=== PATIENT | male | born 1935 | race Caucasian/White ===

== ENCOUNTER 2017-02-24 12:27 | Inpatient (IN) | payer OTHER ==
[~2017-02-24] VITALS: Ht 154.9 cm; Wt 83.9 kg
[2017-02-24] VITALS (7 sets, daily range): BP systolic 127–144; BP diastolic 58–64
[2017-02-24 13:27] LABS: MCH 22.5 PG (29.0-34.0); MCHC 29.2 G/DL (30.0-36.0); MCV 77.2 FL (86-99); MEAN PLAT.VOLUME 11.9 uM^3 (9.0-12.4); PLATELET COUNT 119 K/uL (156-360); RBC DIS.WIDTH-SD 41.4 % (39-53); RED BLOOD COUNT 3.11 M/uL (4.00-5.50); WHITE BLOOD COUNT 4.3 K/uL (4.1-10.2)
[2017-02-24 13:40] LABS: CHLORIDE 107 mEq/L (99-109); POTASSIUM 4.1 mEq/L (3.7-5.4); SODIUM 140 mEq/L (136-147)
[2017-02-24 13:41] LABS: GLUCOSE 139 mg/dL (70-99)
[2017-02-24 13:43] LABS: ANION GAP 14 MEQ/L (2-14)
[2017-02-24 13:45] LABS: GFR ESTIMATE (CALCULATED) 52 mL/min/
[2017-02-24 13:46] LABS: UREA NITROGEN (BUN) 32 mg/dL (9-23)
[2017-02-24] MEDS ORDERED: LEVO-T50 MCG PO (14:46)
[2017-02-24] MEDS ORDERED: LANTUS 3 M100 UNITS1 SC (14:46)
[2017-02-24] MEDS ORDERED: ALTACE10 MG PO (14:47)
[2017-02-24] MEDS ORDERED: HYDROCHLOROTHIA25 MG PO (14:47)
[2017-02-24] MEDS ORDERED: GLUCOPHAGE500 MG PO (14:48)
[2017-02-24] MEDS ORDERED: LIPITOR40 MG PO (14:48)
[2017-02-24] MEDS ORDERED: LOPRESSOR50 MG PO (14:49)
[2017-02-24] MEDS ORDERED: FERROUS SULFAT325 MG PO (14:50)
[2017-02-24] MEDS ORDERED: LO-DOSE ASPIRIN81 M2 PO (14:50)
[2017-02-24 15:47] LABS: POINT-OF-CARE METER ID UU13113702
[2017-02-24 17:39] LABS: FERRITIN 10 NG/ML (22-322)
[2017-02-24 21:11] LABS: POINT-OF-CARE METER ID UU13113725
[2017-02-25] VITALS (11 sets, daily range): BP systolic 112–139; BP diastolic 55–63
[2017-02-25 04:37] LABS: HEMATOCRIT 26.8 % (38.0-50.0); MCH 23.2 PG (29.0-34.0); MCV 75.1 FL (86-99); MEAN PLAT.VOLUME 11.2 uM^3 (9.0-12.4); PLATELET COUNT 120 K/uL (156-360); RBC DIS.WIDTH-CV 14.6 % (11.8-14.6); RBC DIS.WIDTH-SD 39.8 % (39-53); RED BLOOD COUNT 3.57 M/uL (4.00-5.50); WHITE BLOOD COUNT 4.6 K/uL (4.1-10.2)
[2017-02-25 05:36] LABS: POINT-OF-CARE METER ID UU13113725
[2017-02-25 06:17] LABS: BASOPHIL COUNT 0.1 K/uL (0-0.1); EOSINOPHIL (%) 1.8 % (0-5); EOSINOPHIL COUNT 0.1 K/uL (0-0.3); IMMATURE GRANULOCYTE (%) 0.5 % (0.0-0.7); INSTRUMENT ABS NEUTROPHIL CT 2.5 K/uL; LYMPHOCYTE COUNT 1.2 K/uL (1.0-2.8); MCH 22.6 PG (29.0-34.0); MCHC 29.6 G/DL (30.0-36.0); MCV 76.3 FL (86-99); MEAN PLAT.VOLUME 11.8 uM^3 (9.0-12.4); MONOCYTE (%) 11.2 % (3-12); MONOCYTE COUNT 0.5 K/uL (0-0.8); NEUTROPHIL (%) 57.1 % (45-76); NEUTROPHIL COUNT 2.5 K/uL (1.8-6.4); PLATELET COUNT 114 K/uL (156-360); RBC DIS.WIDTH-CV 14.7 % (11.8-14.6); RBC DIS.WIDTH-SD 40.6 % (39-53); RED BLOOD COUNT 3.67 M/uL (4.00-5.50); WHITE BLOOD COUNT 4.4 K/uL (4.1-10.2)
[2017-02-25 06:42] LABS: ANION GAP 11 MEQ/L (2-14); CHLORIDE 102 MEQ/L (99-109); GFR ESTIMATE (CALCULATED) 56 mL/min/; SAMPLE HEMOLYSIS CHECK 0; SAMPLE ICTERIC CHECK 0; SAMPLE LIPEMIA CHECK 0; SODIUM 139 MEQ/L (136-147); UREA NITROGEN (BUN) 32 mg/dL (9-23)
[2017-02-25 06:43] LABS: ALKALINE PHOSPHATASE 64 IU/L (3-129); ANION GAP 12 MEQ/L (2-14); CHLORIDE 101 MEQ/L (99-109); GFR ESTIMATE (CALCULATED) 56 mL/min/; POTASSIUM 4.1 MEQ/L (3.7-5.4); SAMPLE HEMOLYSIS CHECK 0; SAMPLE ICTERIC CHECK 0; SAMPLE LIPEMIA CHECK 0; SODIUM 138 MEQ/L (136-147); UREA NITROGEN (BUN) 32 mg/dL (9-23)
[2017-02-25 06:44] LABS: INTER. NORMALIZED RATIO 1.1; PROTHROMBIN TIME 11.5 (9.2-11.2); PTT 29.2 (25-32)
[2017-02-25 06:52] LABS: GLUCOSE 79 mg/dL (70-99); GLUCOSE 80 mg/dL (70-99); TOTAL BILIRUBIN 0.7 MG/DL (0.0-1.0)
[2017-02-25 10:11] LABS: POINT-OF-CARE METER ID UU13113675
[2017-02-25 11:48] LABS: POINT-OF-CARE METER ID UU13113725
[2017-02-25 14:25] LABS: HEMATOCRIT 27.1 % (38.0-50.0); MCV 77.4 FL (86-99)
[2017-02-25 16:02] LABS: POINT-OF-CARE METER ID UU13113725
[2017-02-25 20:50] LABS: POINT-OF-CARE METER ID UU13113725
[2017-02-26 03:36] VITALS: BP 128/64
[2017-02-26 05:55] LABS: POINT-OF-CARE METER ID UU13113725
[2017-02-26 06:03] LABS: HEMATOCRIT 28.9 % (38.0-50.0); MCH 23.6 PG (29.0-34.0); MCHC 30.8 G/DL (30.0-36.0); MCV 76.7 FL (86-99); PLATELET COUNT 101 K/uL (156-360); RBC DIS.WIDTH-CV 15.2 % (11.8-14.6); RBC DIS.WIDTH-SD 41.6 % (39-53); RED BLOOD COUNT 3.77 M/uL (4.00-5.50); WHITE BLOOD COUNT 4.5 K/uL (4.1-10.2)
[2017-02-26 06:26] LABS: ANION GAP 11 MEQ/L (2-14); CHLORIDE 101 MEQ/L (99-109); GFR ESTIMATE (CALCULATED) > 59 mL/min/; GLUCOSE 74 mg/dL (70-99); POTASSIUM 3.7 MEQ/L (3.7-5.4); SAMPLE HEMOLYSIS CHECK 0; SAMPLE ICTERIC CHECK 0; SAMPLE LIPEMIA CHECK 0; SODIUM 138 MEQ/L (136-147); UREA NITROGEN (BUN) 26 mg/dL (9-23)
[2017-02-26 07:11] VITALS: BP 136/60
[2017-02-26 11:25] VITALS: BP 140/64
[2017-02-26 11:30] LABS: POINT-OF-CARE METER ID UU13113725
[2017-02-26 15:53] VITALS: BP 160/79
[2017-02-26 23:02] VITALS: BP 122/56
[2017-02-27 05:40] LABS: POINT-OF-CARE METER ID UU13113725
[2017-02-27 06:24] LABS: HEMATOCRIT 31.1 % (38.0-50.0); MCH 23.3 PG (29.0-34.0); MCHC 29.9 G/DL (30.0-36.0); MCV 77.9 FL (86-99); MEAN PLAT.VOLUME 11.6 uM^3 (9.0-12.4); PLATELET COUNT 106 K/uL (156-360); RBC DIS.WIDTH-CV 15.4 % (11.8-14.6); RBC DIS.WIDTH-SD 43.3 % (39-53); RED BLOOD COUNT 3.99 M/uL (4.00-5.50); WHITE BLOOD COUNT 4.9 K/uL (4.1-10.2)
[2017-02-27 06:50] LABS: ANION GAP 11 MEQ/L (2-14); CHLORIDE 100 MEQ/L (99-109); GFR ESTIMATE (CALCULATED) > 59 mL/min/; GLUCOSE 75 mg/dL (70-99); POTASSIUM 3.7 MEQ/L (3.7-5.4); SAMPLE HEMOLYSIS CHECK 0; SAMPLE ICTERIC CHECK 0; SAMPLE LIPEMIA CHECK 0; SODIUM 140 MEQ/L (136-147); UREA NITROGEN (BUN) 21 mg/dL (9-23)
[2017-02-27 08:24] VITALS: BP 146/67; BP 146/673
[2017-02-27 11:17] LABS: POINT-OF-CARE METER ID UU13113725
[2017-02-27 14:31] VITALS: BP 121/56
[2017-02-27 17:35] LABS: POINT-OF-CARE METER ID UU13113675
[2017-02-27 18:55] VITALS: BP 119/59
[2017-02-27 19:12] VITALS: BP 134/57
[2017-02-27 20:51] LABS: POINT-OF-CARE METER ID UU13113725
[2017-02-28 06:06] LABS: POINT-OF-CARE METER ID UU13113725
[2017-02-28 06:55] LABS: HEMATOCRIT 30.5 % (38.0-50.0); MCH 23.1 PG (29.0-34.0); MCHC 29.2 G/DL (30.0-36.0); MEAN PLAT.VOLUME 11.4 uM^3 (9.0-12.4); PLATELET COUNT 92 K/uL (156-360); RBC DIS.WIDTH-CV 15.7 % (11.8-14.6); RBC DIS.WIDTH-SD 44.4 % (39-53); RED BLOOD COUNT 3.86 M/uL (4.00-5.50); WHITE BLOOD COUNT 4.9 K/uL (4.1-10.2)
[2017-02-28 07:17] LABS: ANION GAP 9 MEQ/L (2-14); CHLORIDE 103 MEQ/L (99-109); GFR ESTIMATE (CALCULATED) > 59 mL/min/; GLUCOSE 83 mg/dL (70-99); POTASSIUM 3.7 MEQ/L (3.7-5.4); SAMPLE HEMOLYSIS CHECK 0; SAMPLE ICTERIC CHECK 0; SAMPLE LIPEMIA CHECK 0; SODIUM 140 MEQ/L (136-147); UREA NITROGEN (BUN) 18 mg/dL (9-23)
[2017-02-28 08:21] VITALS: BP 122/60
[2017-02-28 16:45] VITALS: BP 115/55
[2017-02-28 20:55] LABS: POINT-OF-CARE METER ID UU13113725
[2017-02-28 23:54] VITALS: BP 134/57
[2017-03-01 06:00] LABS: POINT-OF-CARE METER ID UU13113725
[2017-03-01 06:44] LABS: ANION GAP 8 MEQ/L (2-14); CHLORIDE 101 MEQ/L (99-109); GFR ESTIMATE (CALCULATED) > 59 mL/min/; POTASSIUM 3.6 MEQ/L (3.7-5.4); SAMPLE HEMOLYSIS CHECK 0; SAMPLE ICTERIC CHECK 0; SAMPLE LIPEMIA CHECK 0; SODIUM 136 MEQ/L (136-147); UREA NITROGEN (BUN) 21 mg/dL (9-23)
[2017-03-01 06:51] LABS: BASOPHIL COUNT 0.1 K/uL (0-0.1); EOSINOPHIL (%) 2.4 % (0-5); EOSINOPHIL COUNT 0.1 K/uL (0-0.3); HEMATOCRIT 30.7 % (38.0-50.0); IMMATURE GRANULOCYTE (%) 0.2 % (0.0-0.7); INSTRUMENT ABS NEUTROPHIL CT 2.8 K/uL; LYMPHOCYTE COUNT 1.1 K/uL (1.0-2.8); MCH 22.9 PG (29.0-34.0); MCHC 29.3 G/DL (30.0-36.0); MCV 78.1 FL (86-99); MONOCYTE (%) 10.2 % (3-12); MONOCYTE COUNT 0.5 K/uL (0-0.8); NEUTROPHIL (%) 62.9 % (45-76); NEUTROPHIL COUNT 2.8 K/uL (1.8-6.4); PLATELET COUNT 94 K/uL (156-360); RBC DIS.WIDTH-CV 15.5 % (11.8-14.6); RBC DIS.WIDTH-SD 43.8 % (39-53); RED BLOOD COUNT 3.93 M/uL (4.00-5.50); WHITE BLOOD COUNT 4.5 K/uL (4.1-10.2)
[2017-03-01 06:55] LABS: GLUCOSE 113 mg/dL (70-99)
[2017-03-01 07:30] VITALS: BP 114/60
[2017-03-01 15:34] VITALS: BP 118/55
[2017-03-01 16:43] LABS: POINT-OF-CARE METER ID UU13113725
[2017-03-01 22:20] LABS: POINT-OF-CARE METER ID UU13113725
[2017-03-01 23:40] VITALS: BP 138/62
[2017-03-02 04:38] LABS: POINT-OF-CARE METER ID UU13113725
[2017-03-02 08:46] VITALS: BP 139/66
[2017-03-02] MEDS ORDERED: CYANOCOBALAM1000 MCG PO (10:49)
[2017-03-02] MEDS ORDERED: LANTUS 3 M100 UNITS1 SC (10:49)
[2017-03-02] MEDS ORDERED: PANTOPRAZOLE SO40 MG PO (10:50)
[2017-03-02 11:54] LABS: POINT-OF-CARE METER ID UU13113725
== END 2017-03-02 12:32 | disposition home health service (06) | DRG 811 ==
LOC: EME 12:27 → EDOF 14:06 → 5EAST 14:06
PROVIDERS: Emergency Medicine; Hospitalist; Internal Medicine; Internal Medicine Gastroenterology
PROC: 0DBN8ZX Excision of Sigmoid Colon, Via Natural or Artificial Opening Endoscopic, Diagnostic (ICD-10-PCS; principal; 2017-02-24)
PROC: 30233N1 Transfusion of Nonautologous Red Blood Cells into Peripheral Vein, Percutaneous Approach (ICD-10-PCS; 2017-02-25)
DX: D62 Acute posthemorrhagic anemia (principal); I85.11 Secondary esophageal varices with bleeding; N17.9 Acute kidney failure, unspecified; E87.2 Acidosis; D69.6 Thrombocytopenia, unspecified; K76.6 Portal hypertension; J44.9 Chronic obstructive pulmonary disease, unspecified; I10 Essential (primary) hypertension; K74.60 Unspecified cirrhosis of liver; E11.9 Type 2 diabetes mellitus without complications; D73.2 Chronic congestive splenomegaly; E03.9 Hypothyroidism, unspecified; Z79.4 Long term (current) use of insulin; I25.10 Atherosclerotic heart disease of native coronary artery without angina pectoris; Z79.82 Long term (current) use of aspirin; R09.02 Hypoxemia; D12.5 Benign neoplasm of sigmoid colon; D12.2 Benign neoplasm of ascending colon; D12.3 Benign neoplasm of transverse colon; K57.30 Diverticulosis of large intestine without perforation or abscess without bleeding; K64.8 Other hemorrhoids; Z95.1 Presence of aortocoronary bypass graft; Z87.891 Personal history of nicotine dependence; E66.9 Obesity, unspecified; Z68.31 Body mass index [BMI] 31.0-31.9, adult
CPT/HCPCS: 36415; 71010; 71250; 74176; 80048; 80048 91; 80053; 80061; 80069; 82105 90; 82607; 82728; 82746; 82948; 83036; 83540; 84439; 84443; 84466; 85014; 85018; 85025; 85027; 85610; 85730; 86850; 86870; 86900; 86901; 86905; 86920; 88305; 88342 TC; 94760; 94799; 97530 GO; 99281; 99285; C9113; J0696; J1815; J1940; J2354; J3010; J7050; P9016

== ENCOUNTER 2017-06-11 14:25 | Inpatient (IN) | payer OTHER ==
[~2017-06-11] VITALS: Ht 165.1 cm; Wt 83.9 kg
[~2017-06-11 14:25] MED LIST: ALTACE10 MG PO; CYANOCOBALAM1000 MCG PO; FERROUS SULFAT325 MG PO; GLUCOPHAGE500 MG PO; HYDROCHLOROTHIA25 MG PO; LANTUS 3 M100 UNITS1 SC; LEVO-T75 MCG PO; LIPITOR40 MG PO; LO-DOSE ASPIRIN81 M2 PO; LOPRESSOR50 MG PO; PANTOPRAZOLE SO40 MG PO
[2017-06-11 14:54] LABS: HEMATOCRIT 25.4 % (38.0-50.0); MCH 23.8 PG (29.0-34.0); MCHC 29.9 G/DL (30.0-36.0); MCV 79.4 FL (86-99); MEAN PLAT.VOLUME 10.8 uM^3 (9.0-12.4); PLATELET COUNT 102 K/uL (156-360); RBC DIS.WIDTH-CV 14.8 % (11.8-14.6); RBC DIS.WIDTH-SD 43.1 % (39-53); WHITE BLOOD COUNT 4.9 K/uL (4.1-10.2)
[2017-06-11 14:57] LABS: POINT-OF-CARE METER ID UU13113702
[2017-06-11 15:05] LABS: CHLORIDE 105 mEq/L (99-109); POTASSIUM 3.4 mEq/L (3.7-5.4); SODIUM 139 mEq/L (136-147)
[2017-06-11 15:07] LABS: GLUCOSE 183 mg/dL (70-99)
[2017-06-11 15:08] LABS: ANION GAP 9 MEQ/L (2-14)
[2017-06-11 15:09] LABS: TOTAL BILIRUBIN 0.6 mg/dL (0.0-1.0)
[2017-06-11 15:10] LABS: ALKALINE PHOSPHATASE 93 IU/L (3-129)
[2017-06-11 15:11] LABS: GFR ESTIMATE (CALCULATED) 44 mL/min/
[2017-06-11 15:12] LABS: UREA NITROGEN (BUN) 25 mg/dL (9-23)
[2017-06-11 15:14] LABS: LIPASE 70 U/L (1.0-51.0)
[2017-06-11 15:18] LABS: TROP-I INTERPRETATION NEGATIVE; TROPONIN-I 0.03 ng/mL (0.0-0.30)
[2017-06-11] MEDS ORDERED: CORGARD20 MG PO (16:59)
[2017-06-11] MEDS ORDERED: LASIX40 MG PO (17:00)
[2017-06-11] MEDS ORDERED: ALDACTONE25 MG PO (17:00)
[2017-06-11] MEDS ORDERED: PANTOPRAZOLE SO40 MG PO (17:01)
[2017-06-11 18:04] LABS: CREATININE 1.4 mg/dL (0.6-1.3); POTASSIUM 3.3 mEq/L (3.7-5.4)
[2017-06-11 21:50] VITALS: BP 137/57
[2017-06-11 22:15] VITALS: BP 118/50
[2017-06-11 22:25] VITALS: BP 118/50
[2017-06-11 22:33] LABS: MAGNESIUM 1.7 mg/dL (1.3-2.7)
[2017-06-11 23:00] VITALS: BP 118/52
[2017-06-11 23:45] LABS: POINT-OF-CARE METER ID UU13113731
[2017-06-11 23:46] LABS: METH RESISTANT S AUREUS PCR NEGATIVE (NEGATIVE)
[2017-06-11 23:57] LABS: PROBE CHECK PASS; SPECIMEN PROCESSING CONTROL PASS
[2017-06-12] VITALS (23 sets, daily range): BP systolic 90–135; BP diastolic 35–73
[2017-06-12 00:42] LABS: HEMATOCRIT 25.4 % (38.0-50.0); MCV 79.9 FL (86-99)
[2017-06-12 00:59] LABS: TROP-I INTERPRETATION NEGATIVE; TROPONIN-I 0.18 ng/mL (0.0-0.30)
[2017-06-12 04:55] LABS: HEMATOCRIT 24.9 % (38.0-50.0); MCHC 30.1 G/DL (30.0-36.0); MCV 79.8 FL (86-99); MEAN PLAT.VOLUME 11.3 uM^3 (9.0-12.4); PLATELET COUNT 114 K/uL (156-360); RBC DIS.WIDTH-CV 15.1 % (11.8-14.6); RBC DIS.WIDTH-SD 43.8 % (39-53); RED BLOOD COUNT 3.12 M/uL (4.00-5.50); WHITE BLOOD COUNT 8.4 K/uL (4.1-10.2)
[2017-06-12 05:01] LABS: INTER. NORMALIZED RATIO 1.2; PROTHROMBIN TIME 13.2 SEC (10.2-12.9)
[2017-06-12 05:06] LABS: CHLORIDE 103 mEq/L (99-109); SODIUM 140 mEq/L (136-147)
[2017-06-12 05:08] LABS: GLUCOSE 176 mg/dL (70-99)
[2017-06-12 05:10] LABS: ANION GAP 10 MEQ/L (2-14)
[2017-06-12 05:11] LABS: POTASSIUM 4.2 mEq/L (3.7-5.4)
[2017-06-12 05:12] LABS: GFR ESTIMATE (CALCULATED) 41 mL/min/
[2017-06-12 05:13] LABS: UREA NITROGEN (BUN) 29 mg/dL (9-23)
[2017-06-12 05:15] LABS: LIPASE 46 U/L (1.0-51.0)
[2017-06-12 05:18] LABS: TROP-I INTERPRETATION NEGATIVE
[2017-06-12 09:00] LABS: POINT-OF-CARE METER ID UU13113731
[2017-06-12 12:12] LABS: POINT-OF-CARE METER ID UU14174217
[2017-06-12 18:18] LABS: POINT-OF-CARE METER ID UU14174217
[2017-06-12 21:34] LABS: POINT-OF-CARE METER ID UU14174217
[2017-06-13] VITALS (17 sets, daily range): BP systolic 112–175; BP diastolic 44–72
[2017-06-13 02:46] LABS: BASOPHIL COUNT 0.1 K/uL (0-0.1); EOSINOPHIL (%) 1.1 % (0-5); EOSINOPHIL COUNT 0.1 K/uL (0-0.3); HEMATOCRIT 26.2 % (38.0-50.0); IMMATURE GRANULOCYTE (%) 0.7 % (0.0-0.7); IMMATURE GRANULOCYTE COUNT 0.1 K/uL; INSTRUMENT ABS NEUTROPHIL CT 8.3 K/uL; MCH 24.1 PG (29.0-34.0); MCHC 30.9 G/DL (30.0-36.0); MEAN PLAT.VOLUME 11.5 uM^3 (9.0-12.4); MONOCYTE (%) 11.8 % (3-12); MONOCYTE COUNT 1.4 K/uL (0-0.8); NEUTROPHIL (%) 69.7 % (45-76); NEUTROPHIL COUNT 8.3 K/uL (1.8-6.4); PLATELET COUNT 148 K/uL (156-360); RBC DIS.WIDTH-SD 42.4 % (39-53); RED BLOOD COUNT 3.36 M/uL (4.00-5.50); WHITE BLOOD COUNT 11.9 K/uL (4.1-10.2)
[2017-06-13 03:21] LABS: GLOBULINS 3.8 G/DL (2.3-3.5)
[2017-06-13 07:10] LABS: POC NON-PRINT COM 1 ND
[2017-06-13 08:08] LABS: ANION GAP 8 MEQ/L (2-14); CHLORIDE 100 MEQ/L (99-109); MAGNESIUM 2.5 mg/dl (1.3-2.7); POTASSIUM 4.2 MEQ/L (3.7-5.4); SAMPLE HEMOLYSIS CHECK 0; SAMPLE ICTERIC CHECK 0; SAMPLE LIPEMIA CHECK 0; SODIUM 136 MEQ/L (136-147)
[2017-06-13 08:13] LABS: GFR ESTIMATE (CALCULATED) 41 mL/min/; GLUCOSE 169 mg/dL (70-99); UREA NITROGEN (BUN) 35 mg/dL (9-23)
[2017-06-13 08:20] LABS: POINT-OF-CARE METER ID UU13113731
[2017-06-13 11:38] LABS: ALBUMIN 3.71 G/DL (3.6-4.9); ALBUMIN PERCENT 49.5 % (49.3-67.1); ALPHA-1 GLOBULIN 0.29 G/DL (0.15-0.40); ALPHA-1 PERCENT 3.8 % (2.1-5.5); ALPHA-2 PERCENT 10.7 % (6.2-11.6)
[2017-06-13 11:39] LABS: SERUM GEL NO. 93-7
[2017-06-13 12:04] LABS: POINT-OF-CARE METER ID UU13113731
[2017-06-13 17:43] LABS: POINT-OF-CARE METER ID UU13113748
[2017-06-14 03:53] VITALS: BP 138/76
[2017-06-14 06:10] LABS: HEMATOCRIT 23.1 % (38.0-50.0); MCH 24.1 PG (29.0-34.0); MCHC 30.7 G/DL (30.0-36.0); MCV 78.3 FL (86-99); PLATELET COUNT 106 K/uL (156-360); RBC DIS.WIDTH-CV 14.9 % (11.8-14.6); RBC DIS.WIDTH-SD 42.6 % (39-53); RED BLOOD COUNT 2.95 M/uL (4.00-5.50); WHITE BLOOD COUNT 7.2 K/uL (4.1-10.2)
[2017-06-14 07:28] LABS: POINT-OF-CARE METER ID UU13113698
[2017-06-14 08:00] VITALS: BP 148/70
[2017-06-14 09:45] LABS: IMM.RETIC FRACTION 22.7 % (3-19); RETICULOCYTE COUNT 2.6 % (0.5-1.8)
[2017-06-14 11:26] LABS: POINT-OF-CARE METER ID UU13113781
[2017-06-14 13:22] VITALS: BP 133/61
[2017-06-14 15:40] VITALS: BP 137/61
[2017-06-14 17:42] LABS: MCH 25.3 PG (29.0-34.0); MCHC 31.7 G/DL (30.0-36.0); MCV 79.6 FL (86-99); MEAN PLAT.VOLUME 10.9 uM^3 (9.0-12.4); PLATELET COUNT 99 K/uL (156-360); RBC DIS.WIDTH-CV 14.9 % (11.8-14.6); RBC DIS.WIDTH-SD 43.5 % (39-53); RED BLOOD COUNT 2.89 M/uL (4.00-5.50); WHITE BLOOD COUNT 6.9 K/uL (4.1-10.2)
[2017-06-14 20:00] VITALS: BP 124/61
[2017-06-14 21:50] LABS: POINT-OF-CARE METER ID UU13113803
[2017-06-14 23:55] VITALS: BP 124/59
[2017-06-15] VITALS (12 sets, daily range): BP systolic 122–162; BP diastolic 56–70
[2017-06-15 05:33] LABS: HEMATOCRIT 23.5 % (38.0-50.0); MCH 23.7 PG (29.0-34.0); MCHC 30.2 G/DL (30.0-36.0); MCV 78.6 FL (86-99); MEAN PLAT.VOLUME 11.2 uM^3 (9.0-12.4); PLATELET COUNT 98 K/uL (156-360); RBC DIS.WIDTH-CV 14.8 % (11.8-14.6); RBC DIS.WIDTH-SD 41.9 % (39-53); RED BLOOD COUNT 2.99 M/uL (4.00-5.50); WHITE BLOOD COUNT 6.1 K/uL (4.1-10.2)
[2017-06-15 07:30] LABS: POINT-OF-CARE METER ID UU13113781
[2017-06-15 11:16] LABS: POINT-OF-CARE METER ID UU13113803
[2017-06-15 16:41] LABS: POINT-OF-CARE METER ID UU13113803
[2017-06-15 17:52] LABS: MCH 24.3 PG (29.0-34.0); MCHC 30.8 G/DL (30.0-36.0); MCV 78.9 FL (86-99); MEAN PLAT.VOLUME 10.8 uM^3 (9.0-12.4); PLATELET COUNT 97 K/uL (156-360); RBC DIS.WIDTH-CV 14.9 % (11.8-14.6); RBC DIS.WIDTH-SD 42.7 % (39-53); RED BLOOD COUNT 3.04 M/uL (4.00-5.50); WHITE BLOOD COUNT 5.8 K/uL (4.1-10.2)
[2017-06-16] VITALS (12 sets, daily range): BP systolic 124–164; BP diastolic 60–70
[2017-06-16 05:47] LABS: HEMATOCRIT 28.1 % (38.0-50.0); MCV 80.3 FL (86-99)
[2017-06-16 07:50] LABS: POINT-OF-CARE METER ID UU13113698
[2017-06-16 11:43] LABS: POINT-OF-CARE METER ID UU13113781
[2017-06-16 16:40] LABS: POINT-OF-CARE METER ID UU13113781
[2017-06-17 04:00] VITALS: BP 130/60
[2017-06-17 05:56] LABS: EOSINOPHIL (%) 3.2 % (0-5); EOSINOPHIL COUNT 0.2 K/uL (0-0.3); HEMATOCRIT 29.1 % (38.0-50.0); IMMATURE GRANULOCYTE (%) 0.2 % (0.0-0.7); INSTRUMENT ABS NEUTROPHIL CT 3.1 K/uL; LYMPHOCYTE COUNT 0.7 K/uL (1.0-2.8); MCH 25.5 PG (29.0-34.0); MCV 79.9 FL (86-99); MEAN PLAT.VOLUME 11.2 uM^3 (9.0-12.4); MONOCYTE (%) 14.3 % (3-12); MONOCYTE COUNT 0.7 K/uL (0-0.8); NEUTROPHIL (%) 65.9 % (45-76); NEUTROPHIL COUNT 3.1 K/uL (1.8-6.4); PLATELET COUNT 104 K/uL (156-360); RBC DIS.WIDTH-CV 15.4 % (11.8-14.6); RBC DIS.WIDTH-SD 43.7 % (39-53); RED BLOOD COUNT 3.64 M/uL (4.00-5.50); WHITE BLOOD COUNT 4.8 K/uL (4.1-10.2)
[2017-06-17 06:48] LABS: ANION GAP 9 MEQ/L (2-14); CHLORIDE 100 MEQ/L (99-109); GFR ESTIMATE (CALCULATED) > 59 mL/min/; GLUCOSE 124 mg/dL (70-99); POTASSIUM 3.8 MEQ/L (3.7-5.4); SAMPLE HEMOLYSIS CHECK 0; SAMPLE ICTERIC CHECK 0; SAMPLE LIPEMIA CHECK 0; SODIUM 139 MEQ/L (136-147); UREA NITROGEN (BUN) 31 mg/dL (9-23)
[2017-06-17 08:00] VITALS: BP 149/66
[2017-06-17 08:16] LABS: POINT-OF-CARE USER ID NUTSLF44
[2017-06-17 08:30] VITALS: BP 146/64
[2017-06-17 11:53] LABS: POINT-OF-CARE USER ID NUTSLF44
[2017-06-17 12:55] VITALS: BP 124/56
[2017-06-17 16:53] VITALS: BP 134/65
[2017-06-17 17:01] LABS: POINT-OF-CARE METER ID UU13113803; POINT-OF-CARE USER ID NUTSLF44
[2017-06-17 20:00] VITALS: BP 149/66
[2017-06-17 21:15] LABS: POINT-OF-CARE METER ID UU13113803
[2017-06-18] VITALS (10 sets, daily range): BP systolic 120–182; BP diastolic 58–75
[2017-06-18 16:24] LABS: POINT-OF-CARE METER ID UU13113781
[2017-06-18 21:15] LABS: POINT-OF-CARE METER ID UU13113781
[2017-06-19 04:14] VITALS: BP 137/100
[2017-06-19 04:41] VITALS: BP 136/62
[2017-06-19 07:25] VITALS: BP 148/72
[2017-06-19 09:53] LABS: EOSINOPHIL (%) 0.2 % (0-5); HEMATOCRIT 36.5 % (38.0-50.0); IMMATURE GRANULOCYTE (%) 0.6 % (0.0-0.7); LYMPHOCYTE COUNT 0.7 K/uL (1.0-2.8); MCH 25.4 PG (29.0-34.0); MCHC 31.5 G/DL (30.0-36.0); MCV 80.6 FL (86-99); MONOCYTE (%) 12.3 % (3-12); MONOCYTE COUNT 0.8 K/uL (0-0.8); NEUTROPHIL (%) 76.4 % (45-76); PLATELET COUNT 114 K/uL (156-360); RBC DIS.WIDTH-CV 16.4 % (11.8-14.6); RBC DIS.WIDTH-SD 47.6 % (39-53); WHITE BLOOD COUNT 6.5 K/uL (4.1-10.2)
[2017-06-19 10:05] LABS: RED BLOOD COUNT 4.53 M/uL (4.00-5.50)
[2017-06-19 10:13] LABS: ANION GAP 11 MEQ/L (2-14); CHLORIDE 97 MEQ/L (99-109); GFR ESTIMATE (CALCULATED) 52 mL/min/; GLUCOSE 158 mg/dL (70-99); POTASSIUM 4.1 MEQ/L (3.7-5.4); SAMPLE HEMOLYSIS CHECK 0; SAMPLE ICTERIC CHECK 0; SAMPLE LIPEMIA CHECK 0; SODIUM 136 MEQ/L (136-147); UREA NITROGEN (BUN) 26 mg/dL (9-23)
[2017-06-19 10:17] LABS: TROP-I INTERPRETATION NEGATIVE; TROPONIN-I 0.04 ng/mL (0.0-0.30)
[2017-06-19 11:45] VITALS: BP 131/62
[2017-06-19] MEDS ORDERED: SUCRALFATE1 GM/10 ML PO (13:56)
[2017-06-19] MEDS ORDERED: CORDARONE200 MG PO (13:59)
[2017-06-19 15:50] VITALS: BP 157/68
== END 2017-06-19 17:42 | disposition home health service (06) | DRG 309 ==
LOC: EME 14:25 → EDOF 16:27 → 4WEST 16:27 → ENRESERV 16:27 → CANRESERV 16:46 → ENRESERV 16:46 → EDOF 20:56 → 4WEST 21:50 → ENRESERV 06-13 17:58 → 4EAST 06-13 18:14 → ENPENDDIS 06-19 → 4EAST 06-19 17:42
PROVIDERS: Emergency Medicine; Hospitalist; Internal Medicine; Internal Medicine Critical Care Medicine; Physician Assistant; Specialist
PROC: 5A12012 Performance of Cardiac Output, Single, Manual (ICD-10-PCS; 2017-06-11)
PROC: 30233N1 Transfusion of Nonautologous Red Blood Cells into Peripheral Vein, Percutaneous Approach (ICD-10-PCS; principal; 2017-06-15)
DX: I49.01 Ventricular fibrillation (principal); K76.6 Portal hypertension; K74.60 Unspecified cirrhosis of liver; K92.2 Gastrointestinal hemorrhage, unspecified; I11.9 Hypertensive heart disease without heart failure; E11.9 Type 2 diabetes mellitus without complications; I46.9 Cardiac arrest, cause unspecified; D64.9 Anemia, unspecified; N17.9 Acute kidney failure, unspecified; J90 Pleural effusion, not elsewhere classified; J44.9 Chronic obstructive pulmonary disease, unspecified; I24.8 Other forms of acute ischemic heart disease; J81.1 Chronic pulmonary edema; I25.10 Atherosclerotic heart disease of native coronary artery without angina pectoris; D62 Acute posthemorrhagic anemia; E87.6 Hypokalemia; R18.8 Other ascites; K63.5 Polyp of colon; S22.31XA Fracture of one rib, right side, initial encounter for closed fracture; E87.70 Fluid overload, unspecified; H91.90 Unspecified hearing loss, unspecified ear; E61.1 Iron deficiency; I44.30 Unspecified atrioventricular block; N40.0 Benign prostatic hyperplasia without lower urinary tract symptoms; J98.11 Atelectasis; E78.5 Hyperlipidemia, unspecified; E03.9 Hypothyroidism, unspecified; R55 Syncope and collapse; K80.20 Calculus of gallbladder without cholecystitis without obstruction; K31.7 Polyp of stomach and duodenum; K64.9 Unspecified hemorrhoids; K59.00 Constipation, unspecified; Z95.5 Presence of coronary angioplasty implant and graft; Z79.4 Long term (current) use of insulin; I25.2 Old myocardial infarction; Z95.1 Presence of aortocoronary bypass graft; Z66 Do not resuscitate; Z79.82 Long term (current) use of aspirin; Z79.84 Long term (current) use of oral hypoglycemic drugs; Z79.899 Other long term (current) drug therapy; Z86.010 Personal history of colon polyps; Z87.891 Personal history of nicotine dependence
CPT/HCPCS: 70450; 71010; 71020; 71275; 74177; 76770; 80047; 80048; 80053; 82272; 82948; 83690; 83735; 84100; 84165; 84484; 85014; 85018; 85025; 85027; 85045; 85610; 86850 90; 86860; 86860 90; 86870; 86880; 86880 90; 86885 90; 86900; 86900 90; 86901; 86901 90; 86904 90; 86905; 86905 90; 86906 90; 86920; 86977 90; 87641; 93005; 93306; 94640; 94760; 94799; 97530 GO; 97530 GP; 99281; 99284; C9113; J1815; J1940; J2270; J2405; J3475; J3480; J7030; J7120; J7608; P9016

== ENCOUNTER 2017-06-21 13:14 | Inpatient (IN) | payer OTHER ==
[~2017-06-21] VITALS: Ht 160 cm; Wt 80.6 kg
[~2017-06-21 13:14] MED LIST changes: +ALDACTONE25 MG PO; +CORDARONE200 MG PO; +CORGARD20 MG PO; +LASIX40 MG PO; +SUCRALFATE1 GM/10 ML PO
[2017-06-21 14:04] LABS: HEMATOCRIT 33.5 % (38.0-50.0); MCH 25.7 PG (29.0-34.0); MCHC 32.2 G/DL (30.0-36.0); MCV 79.6 FL (86-99); MEAN PLAT.VOLUME 11.6 uM^3 (9.0-12.4); PLATELET COUNT 112 K/uL (156-360); RBC DIS.WIDTH-CV 16.8 % (11.8-14.6); RED BLOOD COUNT 4.21 M/uL (4.00-5.50)
[2017-06-21 14:08] LABS: CHLORIDE 97 mEq/L (99-109); POTASSIUM 3.8 mEq/L (3.7-5.4); SODIUM 134 mEq/L (136-147)
[2017-06-21 14:10] LABS: GLUCOSE 154 mg/dL (70-99)
[2017-06-21 14:11] LABS: ANION GAP 14 MEQ/L (2-14)
[2017-06-21 14:13] LABS: GFR ESTIMATE (CALCULATED) 36 mL/min/
[2017-06-21 14:17] LABS: UREA NITROGEN (BUN) 41 mg/dL (9-23)
[2017-06-21 14:20] LABS: TROP-I INTERPRETATION NEGATIVE; TROPONIN-I 0.04 ng/mL (0.0-0.30)
[2017-06-21] MEDS ORDERED: AMIODARONE HCL200 MG PO (15:50)
[2017-06-21 16:27] LABS: ADD MIUA? NO; BILIRUBIN NEGATIVE; BLOOD NEGATIVE; COLOR YELLOW ((YELLOW)); GLUCOSE (STRIP) NEGATIVE; KETONES NEGATIVE; LEUKOCYTES NEGATIVE; NITRITE NEGATIVE; PROTEIN (STRIP) 30; SPECIFIC GRAVITY 1.016 (1.000-1.030); UCUL ADDED? NO
[2017-06-21 20:15] VITALS: BP 127/60
[2017-06-21 20:33] VITALS: BP 127/60
[2017-06-21 20:58] LABS: POINT-OF-CARE METER ID UU13113698
[2017-06-21 23:49] VITALS: BP 115/58
[2017-06-22] VITALS (7 sets, daily range): BP systolic 114–150; BP diastolic 52–62
[2017-06-22 05:37] LABS: HEMATOCRIT 33.1 % (38.0-50.0); MCH 25.8 PG (29.0-34.0); MCHC 32.3 G/DL (30.0-36.0); MCV 79.8 FL (86-99); MEAN PLAT.VOLUME 11.4 uM^3 (9.0-12.4); PLATELET COUNT 110 K/uL (156-360); RBC DIS.WIDTH-CV 16.8 % (11.8-14.6); RBC DIS.WIDTH-SD 48.8 % (39-53); RED BLOOD COUNT 4.15 M/uL (4.00-5.50); WHITE BLOOD COUNT 9.2 K/uL (4.1-10.2)
[2017-06-22 05:52] LABS: TROP-I INTERPRETATION NEGATIVE; TROPONIN-I 0.05 ng/mL (0.0-0.30)
[2017-06-22 06:17] LABS: ANION GAP 8 MEQ/L (2-14); CHLORIDE 97 MEQ/L (99-109); GFR ESTIMATE (CALCULATED) 41 mL/min/; GLUCOSE 139 mg/dL (70-99); POTASSIUM 3.7 MEQ/L (3.7-5.4); SAMPLE HEMOLYSIS CHECK 0; SAMPLE ICTERIC CHECK 0; SAMPLE LIPEMIA CHECK 0; SODIUM 134 MEQ/L (136-147); UREA NITROGEN (BUN) 43 mg/dL (9-23)
[2017-06-22 17:37] LABS: POINT-OF-CARE METER ID UU13113781
[2017-06-22 22:01] LABS: POINT-OF-CARE USER ID ENVMNS
[2017-06-23 00:19] VITALS: BP 132/68
[2017-06-23 04:53] VITALS: BP 132/68
[2017-06-23 06:23] LABS: EOSINOPHIL (%) 0.1 % (0-5); IMMATURE GRANULOCYTE COUNT 0.2 K/uL; INSTRUMENT ABS NEUTROPHIL CT 12.1 K/uL; LYMPHOCYTE COUNT 1.4 K/uL (1.0-2.8); MCH 25.2 PG (29.0-34.0); MCHC 32.1 G/DL (30.0-36.0); MCV 78.5 FL (86-99); MEAN PLAT.VOLUME 11.3 uM^3 (9.0-12.4); MONOCYTE (%) 12.7 % (3-12); NEUTROPHIL (%) 77.2 % (45-76); NEUTROPHIL COUNT 12.1 K/uL (1.8-6.4); PLATELET COUNT 121 K/uL (156-360); RBC DIS.WIDTH-CV 16.9 % (11.8-14.6); RBC DIS.WIDTH-SD 47.8 % (39-53); RED BLOOD COUNT 4.33 M/uL (4.00-5.50); WHITE BLOOD COUNT 15.7 K/uL (4.1-10.2)
[2017-06-23 06:41] LABS: ANION GAP 12 MEQ/L (2-14); CHLORIDE 97 MEQ/L (99-109); GFR ESTIMATE (CALCULATED) 44 mL/min/; GLUCOSE 168 mg/dL (70-99); POTASSIUM 3.5 MEQ/L (3.7-5.4); SAMPLE HEMOLYSIS CHECK 0; SAMPLE ICTERIC CHECK 0; SAMPLE LIPEMIA CHECK 0; SODIUM 135 MEQ/L (136-147); UREA NITROGEN (BUN) 44 mg/dL (9-23)
[2017-06-23 07:30] VITALS: BP 125/58
[2017-06-23 07:48] LABS: POINT-OF-CARE METER ID UU13113698
[2017-06-23 11:31] LABS: POINT-OF-CARE METER ID UU13113698
[2017-06-23 12:06] VITALS: BP 115/81
[2017-06-23] MEDS ORDERED: LASIX40 MG PO (12:33)
== END 2017-06-23 14:01 | disposition home health service (06) | DRG 292 ==
LOC: EME 13:14 → EDOF 17:33 → 4EAST 17:33 → ENRESERV 17:37 → 4EAST 20:05
PROVIDERS: Emergency Medicine; Student in an Organized Health Care Education/Training Program
DX: I13.0 Hypertensive heart and chronic kidney disease with heart failure and stage 1 through stage 4 chronic kidney disease, or unspecified chronic kidney disease (principal); N18.3 Chronic kidney disease, stage 3 (moderate); I50.9 Heart failure, unspecified; I25.10 Atherosclerotic heart disease of native coronary artery without angina pectoris; E11.22 Type 2 diabetes mellitus with diabetic chronic kidney disease; E78.5 Hyperlipidemia, unspecified; E83.52 Hypercalcemia; E86.0 Dehydration; I27.2 Other secondary pulmonary hypertension; Z95.1 Presence of aortocoronary bypass graft; N18.9 Chronic kidney disease, unspecified; K76.6 Portal hypertension; Z86.74 Personal history of sudden cardiac arrest; K74.60 Unspecified cirrhosis of liver; I95.9 Hypotension, unspecified; Z74.01 Bed confinement status; J44.9 Chronic obstructive pulmonary disease, unspecified; I25.2 Old myocardial infarction; I35.2 Nonrheumatic aortic (valve) stenosis with insufficiency; N40.0 Benign prostatic hyperplasia without lower urinary tract symptoms
CPT/HCPCS: 71020; 80048; 81003; 82948; 84484; 85025; 85027; 93005; 94799; 99281; 99285; J1644; J1815

== ENCOUNTER 2017-06-25 16:32 | Inpatient (IN) | payer OTHER ==
[~2017-06-25] VITALS: Ht 165.1 cm; Wt 81.9 kg
[~2017-06-25 16:32] MED LIST changes: +AMIODARONE HCL200 MG PO
[2017-06-25 17:15] LABS: ADD MIUA? YES; BILIRUBIN NEGATIVE; BLOOD LARGE; COLOR AMBER ((YELLOW)); GLUCOSE (STRIP) NEGATIVE; KETONES NEGATIVE; LEUKOCYTES SMALL; NITRITE NEGATIVE; PROTEIN (STRIP) 100; SPECIFIC GRAVITY 1.024 (1.000-1.030); UROBILINOGEN 0.2 MG/DL (0.2-1.0)
[2017-06-25 17:29] LABS: RED BLOOD CELLS TNTC /HPF (0-5); UCUL ADDED? YES
[2017-06-25 17:35] LABS: HEMATOCRIT 32.1 % (38.0-50.0); MCH 25.5 PG (29.0-34.0); MCHC 32.7 G/DL (30.0-36.0); MCV 77.9 FL (86-99); MEAN PLAT.VOLUME 11.9 uM^3 (9.0-12.4); RBC DIS.WIDTH-CV 17.2 % (11.8-14.6); RED BLOOD COUNT 4.12 M/uL (4.00-5.50); WHITE BLOOD COUNT 24.7 K/uL (4.1-10.2)
[2017-06-25 17:37] LABS: PLATELET COUNT 171 K/uL (156-360)
[2017-06-25 17:41] LABS: CHLORIDE 96 mEq/L (99-109); POTASSIUM 3.8 mEq/L (3.7-5.4); SODIUM 131 mEq/L (136-147)
[2017-06-25 17:43] LABS: GLUCOSE 157 mg/dL (70-99)
[2017-06-25 17:44] LABS: ANION GAP 14 MEQ/L (2-14)
[2017-06-25 17:45] LABS: TOTAL BILIRUBIN 1.9 mg/dL (0.0-1.0)
[2017-06-25 17:46] LABS: ALKALINE PHOSPHATASE 194 IU/L (3-129)
[2017-06-25 17:47] LABS: GFR ESTIMATE (CALCULATED) 18 mL/min/
[2017-06-25 17:50] LABS: UREA NITROGEN (BUN) 82 mg/dL (9-23)
[2017-06-25 17:52] LABS: TROP-I INTERPRETATION NEGATIVE; TROPONIN-I 0.05 ng/mL (0.0-0.30)
[2017-06-25 18:11] LABS: EOSINOPHIL (%) 0.2 % (0-5); IMMATURE GRANULOCYTE COUNT 0.2 K/uL; INSTRUMENT ABS NEUTROPHIL CT 20.4 K/uL; LYMPHOCYTE COUNT 1.9 K/uL (1.0-2.8); MONOCYTE (%) 8.3 % (3-12); MONOCYTE COUNT 2.1 K/uL (0-0.8); NEUTROPHIL (%) 82.6 % (45-76); NEUTROPHIL COUNT 20.4 K/uL (1.8-6.4); PLAT.SUFFICIENCY ADEQUATE
[2017-06-26] VITALS (7 sets, daily range): BP systolic 84–125; BP diastolic 35–57
[2017-06-26 01:55] LABS: POINT-OF-CARE METER ID UU13113781
[2017-06-26 05:26] LABS: HEMATOCRIT 32.5 % (38.0-50.0); MCH 26.1 PG (29.0-34.0); MCHC 32.6 G/DL (30.0-36.0); MEAN PLAT.VOLUME 11.8 uM^3 (9.0-12.4); PLATELET COUNT 173 K/uL (156-360); RBC DIS.WIDTH-CV 17.6 % (11.8-14.6); RBC DIS.WIDTH-SD 50.9 % (39-53); RED BLOOD COUNT 4.06 M/uL (4.00-5.50); WHITE BLOOD COUNT 27.4 K/uL (4.1-10.2)
[2017-06-26 05:55] LABS: ALKALINE PHOSPHATASE 196 IU/L (3-129); ANION GAP 15 MEQ/L (2-14); CHLORIDE 97 MEQ/L (99-109); GFR ESTIMATE (CALCULATED) 19 mL/min/; GLUCOSE 132 mg/dL (70-99); SAMPLE HEMOLYSIS CHECK 0; SAMPLE ICTERIC CHECK 0; SAMPLE LIPEMIA CHECK 0; SODIUM 134 MEQ/L (136-147); TOTAL BILIRUBIN 1.8 MG/DL (0.0-1.0); UREA NITROGEN (BUN) 84 mg/dL (9-23)
[2017-06-26 07:47] LABS: POINT-OF-CARE METER ID UU13113698
[2017-06-26 09:59] LABS: INTER. NORMALIZED RATIO 1.2; PROTHROMBIN TIME 13.5 SEC (10.2-12.9)
[2017-06-26 10:01] LABS: PTT 33.9 SEC (25-37)
[2017-06-26 11:20] LABS: POINT-OF-CARE METER ID UU13113781
[2017-06-26 12:50] LABS: TYPE OF FLUID PLEURAL
[2017-06-26 13:49] LABS: BODY FLUID LDH 819 IU/L
[2017-06-26 14:00] LABS: BODY FLUID EOSINOPHILS 0 % (0-25); BODY FLUID RBC'S 6000 /MM^3 (0-100); BODY FLUID WBC'S 10340 /MM^3 (0-500); MONONUCLEAR WBC'S 15 %; POLYNUCLEAR WBC'S 85 % (0-25)
[2017-06-26 15:06] LABS: C3 COMPLEMENT 115 MG/DL (58-170); C4 COMPLEMENT 51 MG/DL (10-40)
[2017-06-26 16:20] LABS: POINT-OF-CARE METER ID UU13113698
[2017-06-26 21:02] LABS: POINT-OF-CARE METER ID UU13113803
[2017-06-27] VITALS (7 sets, daily range): BP systolic 69–102; BP diastolic 29–52
[2017-06-27 04:53] LABS: EOSINOPHIL (%) 0.3 % (0-5); EOSINOPHIL COUNT 0.1 K/uL (0-0.3); HEMATOCRIT 29.4 % (38.0-50.0); IMMATURE GRANULOCYTE COUNT 0.2 K/uL; INSTRUMENT ABS NEUTROPHIL CT 18.6 K/uL; LYMPHOCYTE COUNT 1.7 K/uL (1.0-2.8); MCH 24.8 PG (29.0-34.0); MCV 77.6 FL (86-99); MONOCYTE (%) 6.6 % (3-12); MONOCYTE COUNT 1.5 K/uL (0-0.8); NEUTROPHIL (%) 84.5 % (45-76); NEUTROPHIL COUNT 18.6 K/uL (1.8-6.4); PLATELET COUNT 170 K/uL (156-360); RBC DIS.WIDTH-CV 17.4 % (11.8-14.6); RBC DIS.WIDTH-SD 48.9 % (39-53); RED BLOOD COUNT 3.79 M/uL (4.00-5.50)
[2017-06-27 05:04] LABS: INTER. NORMALIZED RATIO 1.2; PROTHROMBIN TIME 13.3 SEC (10.2-12.9)
[2017-06-27 05:07] LABS: PTT 34.5 SEC (25-37)
[2017-06-27 05:08] LABS: CHLORIDE 99 mEq/L (99-109); SODIUM 132 mEq/L (136-147)
[2017-06-27 05:09] LABS: MAGNESIUM 2.3 mg/dL (1.3-2.7)
[2017-06-27 05:10] LABS: GLUCOSE 149 mg/dL (70-99)
[2017-06-27 05:12] LABS: ANION GAP 15 MEQ/L (2-14)
[2017-06-27 05:14] LABS: ALKALINE PHOSPHATASE 201 IU/L (3-129)
[2017-06-27 05:28] LABS: UREA NITROGEN (BUN) 110 mg/dL (9-23)
[2017-06-27 05:29] LABS: GFR ESTIMATE (CALCULATED) 15 mL/min/; TOTAL BILIRUBIN 1.5 mg/dL (0.0-1.0)
[2017-06-27 07:58] LABS: POINT-OF-CARE METER ID UU13113698
[2017-06-27 08:14] LABS: INTACT PARATHYROID HORMONE 118 pg/mL (10-69)
[2017-06-27 12:07] LABS: POINT-OF-CARE METER ID UU13113698
[2017-06-27 16:36] LABS: POINT-OF-CARE METER ID UU13113698
[2017-06-27 20:51] LABS: POINT-OF-CARE METER ID UU13113781
[2017-06-28 04:17] LABS: BODY FLUID PH 7.5 (())
[2017-06-28 04:19] VITALS: BP 81/33
[2017-06-28 05:09] LABS: EOSINOPHIL (%) 0.6 % (0-5); EOSINOPHIL COUNT 0.1 K/uL (0-0.3); HEMATOCRIT 28.5 % (38.0-50.0); IMMATURE GRANULOCYTE (%) 1.1 % (0.0-0.7); IMMATURE GRANULOCYTE COUNT 0.2 K/uL; INSTRUMENT ABS NEUTROPHIL CT 13.3 K/uL; LYMPHOCYTE COUNT 1.4 K/uL (1.0-2.8); MCH 24.9 PG (29.0-34.0); MCHC 31.6 G/DL (30.0-36.0); MCV 78.7 FL (86-99); MEAN PLAT.VOLUME 11.9 uM^3 (9.0-12.4); MONOCYTE (%) 7.7 % (3-12); MONOCYTE COUNT 1.2 K/uL (0-0.8); NEUTROPHIL (%) 82.1 % (45-76); NEUTROPHIL COUNT 13.3 K/uL (1.8-6.4); PLATELET COUNT 137 K/uL (156-360); RBC DIS.WIDTH-CV 17.5 % (11.8-14.6); RBC DIS.WIDTH-SD 49.3 % (39-53); RED BLOOD COUNT 3.62 M/uL (4.00-5.50); WHITE BLOOD COUNT 16.1 K/uL (4.1-10.2)
[2017-06-28 06:15] LABS: ANION GAP 18 MEQ/L (2-14); CHLORIDE 96 MEQ/L (99-109); GLUCOSE 129 mg/dL (70-99); MAGNESIUM 2.6 mg/dl (1.3-2.7); POTASSIUM 4.1 MEQ/L (3.7-5.4); SAMPLE HEMOLYSIS CHECK 0; SAMPLE ICTERIC CHECK 0; SAMPLE LIPEMIA CHECK 0; SODIUM 132 MEQ/L (136-147)
[2017-06-28 06:17] LABS: GFR ESTIMATE (CALCULATED) 11 mL/min/; UREA NITROGEN (BUN) 119 mg/dL (9-23)
[2017-06-28 07:20] VITALS: BP 100/58
[2017-06-28 11:23] LABS: ANTI-NUCLEAR AB SCRN/RFLX(ANA) REACTIVE (NONREACTIVE)
[2017-06-28 11:41] LABS: CENTROMERE ANTIBODY 29 U/mL (0-99); HISTONE ANTIBODY 111 U/mL (0-99); JO-1 ANTIBODY 56 U/mL (0-99); SCL-70 (SCLERODERMA) ANTIBODY 26 U/mL (0-99); SM (SMITH) ANTIBODY 24 U/mL (0-99); SS-A (SJOGREN'S) ANTIBODY 106 U/mL (0-99); SS-B (SJOGREN'S) ANTIBODY 51 U/mL (0-99)
[2017-06-28] MEDS ORDERED: Ativan Oral Concentr PO (13:12)
[2017-06-28] MEDS ORDERED: MORPHINE CON20 MG/M1 PO (13:12)
[2017-06-28] MEDS ORDERED: HYOSCYAMINE0.125 MG SL (13:12)
[2017-06-28] MEDS ORDERED: ATIVAN INTE2 MG/1 ML PO (13:55)
[2017-07-02 21:09] LABS: Neutrophil Cytoplasmic Aby Negative (Negative)
== END 2017-06-28 16:25 | disposition hospice, home (50) | DRG 871 ==
LOC: EME 16:32 → EDOF 21:54 → 4EAST 21:54 → ENRESERV 21:55 → 4EAST 06-26 01:05
PROVIDERS: Emergency Medicine; Internal Medicine; Internal Medicine Nephrology; Radiology Diagnostic Radiology
PROC: 0W9B3ZZ Drainage of Left Pleural Cavity, Percutaneous Approach (ICD-10-PCS; principal; 2017-06-26)
DX: A41.02 Sepsis due to Methicillin resistant Staphylococcus aureus (principal); J44.0 Chronic obstructive pulmonary disease with (acute) lower respiratory infection; J18.9 Pneumonia, unspecified organism; Y95 Nosocomial condition; J96.01 Acute respiratory failure with hypoxia; E87.2 Acidosis; N17.9 Acute kidney failure, unspecified; M00.9 Pyogenic arthritis, unspecified; N39.0 Urinary tract infection, site not specified; I13.0 Hypertensive heart and chronic kidney disease with heart failure and stage 1 through stage 4 chronic kidney disease, or unspecified chronic kidney disease; I50.9 Heart failure, unspecified; E11.22 Type 2 diabetes mellitus with diabetic chronic kidney disease; N18.3 Chronic kidney disease, stage 3 (moderate); I25.10 Atherosclerotic heart disease of native coronary artery without angina pectoris; Z66 Do not resuscitate; Z51.5 Encounter for palliative care; E03.9 Hypothyroidism, unspecified; E78.5 Hyperlipidemia, unspecified; K74.60 Unspecified cirrhosis of liver; K76.6 Portal hypertension; I85.10 Secondary esophageal varices without bleeding; N40.1 Benign prostatic hyperplasia with lower urinary tract symptoms; R33.8 Other retention of urine; Z87.891 Personal history of nicotine dependence; I25.2 Old myocardial infarction; Z95.1 Presence of aortocoronary bypass graft; Z99.81 Dependence on supplemental oxygen; Z88.2 Allergy status to sulfonamides
CPT/HCPCS: 71010; 71250; 73130; 76770; 76942; 80048; 80053; 80202; 81003; 82306; 82570; 82945; 82948; 83605; 83615 91; 83735; 83880; 83970; 83986 90; 84100; 84156; 84484; 84550; 85025; 85027; 85610; 85730; 86021 90; 86038; 86160; 86162 90; 86235; 87040; 87070; 87075; 87077; 87086; 87147; 87186; 87205; 87801; 88108; 88305; 89051; 93005; 94010; 94640; 94640 76; 94760; 94799; 99202; 99281; 99284; J1815; J2270; J2543; J3370; J7030; J7040; J7050; P9047